=== PATIENT | male | born 1935 ===

== ENCOUNTER 2017-01-16 15:33 | Emergency (ER) | payer OTHER, MEDICARE ==
--- NOTE | 2017-01-16 15:52 | EDPHY ---
H & P Time Seen by Provider: 01/16/17 15:52 HPI/ROS: CHIEF COMPLAINT: Left middle finger laceration HISTORY OF PRESENT ILLNESS: Patient was cutting weed barrier and doing yard work about an hour and half prior to arrivalWhen he accidentally cut the distal portion of his left middle finger on a razor blade. Denies foreign body sensation. REVIEW OF SYSTEMS: No weakness or numbness distally. PAST MEDICAL HISTORY: Prostate, cholesterol General Appearance: Alert and conversant, cooperative. Superficial 1 cm laceration to the volar surface of the left middle finger. FDP, FDS, extensor tendon function intact. Normal capillary refill and normal 2 point discrimination. Emergency Department course/MDM: Most reasonable approach is local wound care and does not require sutures. Edges well approximated, bleeding well controlled. No deep structures appear to be involved. Patient agreeable. Warned he has 72 hours to get tetanus vaccine updated, patient declined vaccine in the emergency department will contact his primary care physician tomorrow to find out if he is up-to-date. Smoking Status: Never smoked Constitutional: Initial Vital Signs Temperature (C) 36.3 C 01/16/17 16:13 Heart Rate 53 L 01/16/17 16:13 Respiratory Rate 18 01/16/17 16:13 Blood Pressure 121/70 H 01/16/17 16:13 O2 Sat (%) 96 01/16/17 16:13 O2 Delivery Mode Room Air Allergies/Adverse Reactions: No Known Allergies Allergy (Verified 01/16/17 16:23) Home Medications: Medication Instructions Recorded Atenolol [Tenormin] 25 mg PO DAILY 01/06/15 MDM/Departure - Depart Disposition: Home, Routine, Self-Care Clinical Impression: Finger laceration Qualifiers: Encounter type: initial encounter Qualified Code(s): S61.219A - Laceration without foreign body of unspecified finger without damage to nail, initial encounter Condition: Good Instructions: Acute Wounds (ED) Additional Instructions: Keep dressing clean and dry and in place for 48 hours. Afterwards okay to wash with soap and water, and okay to use bacitracin and a Band-Aid as a dressing at that time. Please call your primary care physician tonight or tomorrow and get your tetanus vaccine updated in the next 72 hours if it has been more than 10 years. Referrals: Ollie Byers MD [Primary Care Provider] - As per Instructions
[2017-01-16] MEDS ORDERED: BACITRACIN OINTMENT 1 PACKET TP ONE (15:58)
[2017-01-16 16:16] VITALS: BP 121/70; PULSE 53; RESP 18; TEMP 97.3; O2SAT 96
== END 2017-01-16 16:13 | disposition home or self-care (01) ==
LOC: CED 15:33
DX: S61.213A Laceration without foreign body of left middle finger without damage to nail, initial encounter (principal); W26.8XXA Contact with other sharp object(s), not elsewhere classified, initial encounter; Y92.197 Garden or yard of other specified residential institution as the place of occurrence of the external cause; Y99.8 Other external cause status; Y93.89 Activity, other specified

== ENCOUNTER → 2018-07-02 | Outpatient (CLI) | payer OTHER, MEDICARE | LOC: FIMAGING 09:20 | PROVIDERS: ATTEND Otolaryngology | DX: K21.9 Gastro-esophageal reflux disease without esophagitis (principal); K44.9 Diaphragmatic hernia without obstruction or gangrene ==